=== PATIENT | female | born 1970 | race Caucasian/White ===

== ENCOUNTER 2020-07-29 12:29 | Emergency (ER) | payer MEDICARE, MEDICAID ==
[~2020-07-29 12:29] MED LIST: ASPIR-LOW81 MG PO; AUGMENTIN 875-1 EACH PO; CRESTOR20 MG PO; FLAGYL500 MG PO; GLUCOPHAGE1000 MG PO; HYDROXYZINE PA100 MG PO; JANUVIA100 MG PO; LEVEMIR FL100 UNIT/1 SC; METOPROLOL TART25 MG PO; NOVOLOG FL100 UNIT/1 SQ; RISPERDAL1 MG PO; TRAZODONE HCL100 MG PO; VENTOLIN HFA 66.7 GM INH
[2020-07-29 13:29] LABS: HEMOGLOBIN 14.8 gm/dl (12.3-15.3); RED BLOOD COUNT 4.81 M/UL (4.00-5.10); WHITE BLOOD COUNT 10.3 K/UL (4.5-11.0)
[2020-07-29 13:53] LABS: BUN/CREATININE RATIO 21 (0-10)
[2020-07-29] MEDS ORDERED: CYCLOBENZAPRINE5 MG PO (17:11)
[2020-07-29] MEDS ORDERED: MOBIC15 MG PO (17:11)
== END 2020-07-29 17:28 | disposition home or self-care (01) ==
LOC: ER1 12:29
PROVIDERS: Physician Assistant
DX: R07.89 Other chest pain (principal); N64.4 Mastodynia; E11.9 Type 2 diabetes mellitus without complications; E78.5 Hyperlipidemia, unspecified; J45.909 Unspecified asthma, uncomplicated; Z79.899 Other long term (current) drug therapy; Z79.4 Long term (current) use of insulin
CPT/HCPCS: 36415; 71045; 80053; 82550; 82553; 83874; 84484; 85025; 99285

== ENCOUNTER 2020-12-29 11:33 | Emergency (ER) | payer MEDICARE, OTHER ==
[~2020-12-29 11:33] MED LIST changes: +CYCLOBENZAPRINE5 MG PO; +MOBIC15 MG PO
[2020-12-29] MEDS ORDERED: MYCOSTATIN CREA15 GM TOP (12:30)
[2020-12-29] MEDS ORDERED: DIFLUCAN150 MG PO (12:30)
== END 2020-12-29 12:55 | disposition home or self-care (01) ==
LOC: ER1 11:33
DX: B37.3 Candidiasis of vulva and vagina (principal); E11.9 Type 2 diabetes mellitus without complications; E78.5 Hyperlipidemia, unspecified; I11.9 Hypertensive heart disease without heart failure; J45.909 Unspecified asthma, uncomplicated; Z91.012 Allergy to eggs
CPT/HCPCS: 99283